=== PATIENT | male | born 1970 | race Caucasian/White ===

== ENCOUNTER → 2016-07-17 | Outpatient (CLI) | payer MEDICARE | LOC: YCFC.O 08:14 | PROVIDERS: ATTEND Nurse Practitioner Family | DX: E11.65 Type 2 diabetes mellitus with hyperglycemia (principal); I10 Essential (primary) hypertension; E83.42 Hypomagnesemia ==

== ENCOUNTER 2016-10-13 02:13 | Emergency (ER) | payer MEDICARE ==
[2016-10-13 02:24] VITALS: TEMP 98.3; O2SAT 97
--- NOTE | 2016-10-13 02:39 | ED.PDOC ---
History of Present Illness - General Chief Complaint: GI Problem Stated Complaint: N/V/D chills, bloating Time Seen by Provider: 10/13/16 02:38 Source: patient Exam Limitations: no limitations - History of Present Illness Initial Comments: [place] 46 y/o male stated that he experienced diarrhea x 3 about 12 hours ago then ate dinner played video game with daughter then had vomiting 10x afterwards felt gaseous.Has DM 1.5 x 20 + years. Timing/Duration: other - 12 hours afo Severity: moderate Improving Factors: nothing Worsening Factors: eating Associated Symptoms: diaphoresis, nausea/vomiting Allergies/Adverse Reactions: Allergies NO KNOWN ALLERGY Allergy (Verified 10/13/16 02:24) Home Medications: Ambulatory Orders Citalopram Hydrobromide 40 mg PO DAILY 01/08/14 Cyclobenzaprine HCl 10 mg PO Q8HR PRN 01/08/14 Diclofenac Sodium [Voltaren] 75 mg PO BID 01/08/14 Insulin Protamine/Lispro 75/25 [Humalog Mix 75/25 Pen] 40 units SC BID 01/08/14 Lisinopril 20 mg PO DAILY 01/08/14 Metformin HCl 1,000 mg PO BID 01/08/14 5-Hydroxytryptophan [5-Htp] 100 mg PO 10/20/14 Aspirin 325 mg PO QD 10/20/14 Buspirone HCl 15 mg PO 10/20/14 Cinnamon 500 mg PO 10/20/14 Fenofibrate 145 mg PO 10/20/14 Fish Oil-Cholecalciferol [Fish Oil + D3 5651-6096 mg-Unit] 1 cap PO 10/20/14 Gabapentin 300 mg PO 10/20/14 Insulin Detemir [Levemir] 0 unit SUBCU 10/20/14 Insulin Glargine 100U/ml [Lantus] unit SUBCU 10/20/14 Linagliptin-Metformin HCl [Jentadueto 2.5-1000 mg] 10/20/14 Meloxicam 15 mg PO 10/20/14 Mometasone Furoate Nasal [place] [Nasonex Nasal [place]] 10/20/14 Multiple Vitamin [Multi Vitamin Daily] 1 tab PO 10/20/14 Niacin ER 500 mg PO 10/20/14 Pravastatin Sodium 80 mg PO 10/20/14 Simvastatin 40 mg PO 10/20/14 Ondansetron Tab [Zofran Tab] 4 mg PO Q6-8H PRN #15 tab 11/01/14 Azithromycin 500 mg PO DAILY #7 tab 11/14/15 Promethazine HCl 50 mg PO TID PRN #14 tab 10/13/16 Review of Systems - Review of Systems Constitutional: States: no symptoms reported EENTM: States: no symptoms reported Respiratory: States: no symptoms reported Cardiology: States: no symptoms reported Gastrointestinal/Abdominal: States: see HPI Genitourinary: States: no symptoms reported Musculoskeletal: States: no symptoms reported Skin: States: no symptoms reported Neurological: States: no symptoms reported Endocrine: States: no symptoms reported Past Medical History (General) - Patient Medical History Hx Seizures: No Hx Stroke: Yes Hx Dementia: No Hx Asthma: No Hx of COPD: No Hx Cardiac Disorders: Yes - arrhythmia Hx Congestive Heart Failure: No Hx Pacemaker: No Hx Hypertension: Yes Hx Thyroid Disease: No Hx Diabetes: Yes Hx Gastroesophageal Reflux: No Hx Renal Disease: No Hx Cancer: No Hx of HIV: No Hx Hepatitis C: No Hx MRSA: No Hx Other PMH: Yes - nephrolithiasis,chronic back pain Surgical History: other - lithotripsy;nerve ablation lumbar EGD - Vaccination History Hx Tetanus, Diphtheria Vaccination: Yes Hx Influenza Vaccination: Yes Hx Pneumococcal Vaccination: No Immunizations Up to Date: Yes - Social History Hx Tobacco Use: No Hx Chewing Tobacco Use: No Hx Alcohol Use: No Hx Substance Use: No Hx Substance Use Treatment: No Hx Depression: No Feels Threatened In Home Enviroment: No Feels Threatened In a Relationship: No Hx Physical Abuse: No Hx Emotional Abuse: No Hx Suspected Abuse: No - Activities of Daily Living Patient Lives Alone: No - family - Female History Patient : No Family Medical History - Family History Mother Family History: Unknown Age (years): 62 Living Status: Still Living Hx Family Hypertension: Yes - parents Hx Cardiac Disease: Yes - cad/mi-dad Hx Family Diabetes: Yes - parents Hx Family Cancer: Yes - brast and gastric-mom Father Living Status: Still Living Hx Family Hypertension: Yes Hx Family Diabetes: Yes Hx Family;Other: [place] x3 Physical Exam - Physical Exam General Appearance: Alert, Anxious, No apparent distress Eye Exam: bilateral normal Ears, Nose, Throat: hearing grossly normal, normal ENT inspection, normal pharynx Neck: non-tender, full range of motion, supple, normal inspection Respiratory: chest non-tender, lungs clear, normal breath sounds Cardiovascular/Chest: normal peripheral pulses, regular rate, rhythm, no murmur Peripheral Pulses: radial,right: 1+, radial,left: 1+ Gastrointestinal/Abdominal: normal bowel sounds, non tender, soft, no organomegaly Back Exam: normal inspection, no CVA tenderness Extremity: normal range of motion, non-tender, normal inspection, no calf tenderness Neurologic: no motor/sensory deficits, alert, oriented x 3 Skin Exam: normal color, warm/dry Lymphatic: no adenopathy Progress - Progress Progress: 10/13/16 04:02 Vital Signs - 8 hr 10/13/16 10/13/16 02:14 02:18 Temperature 98.3 F Pulse Rate [ 120 H monitor] Respiratory 18 18 Rate Blood Pressure 156/88 [Right Arm] O2 Sat by Pulse 97 Oximetry 10/13/16 02:45 EKG STAT 10/13/16 02:56 IV Care:Saline Lock per Protoc QSHIFT 10/13/16 03:47 URINALYSIS Stat Laboratory Results - last 24 hr 10/13/16 10/13/16 10/13/16 02:25 02:25 02:25 WBC 8.8 RBC 5.02 Hgb 13.6 L Hct 39.9 L MCV 79.5 L MCH 27.0 MCHC 34.1 RDW 14.5 Plt Count 128 L MPV 10.1 Absolute Neuts (auto) 7.50 H Absolute Lymphs (auto) 0.50 L Absolute Monos (auto) 0.80 Absolute Eos (auto) 0.00 Absolute Basos (auto) 0.10 Neutrophils % 84.8 H Lymphocytes % 5.4 L Monocytes % 8.8 Eosinophils % 0.4 L Basophils % 0.6 Sodium 136 Potassium 4.3 Chloride 105 Carbon Dioxide 19 L Anion Gap 16.3 BUN 17 Creatinine 0.85 BUN/Creatinine Ratio 20.0 Random Glucose 277 H Serum Osmolality 283.4 Calcium 8.7 Total Bilirubin 0.8 AST 29 ALT 37 Alkaline Phosphatase 40 L Serum Total Protein 7.5 Albumin 4.3 Globulin 3.2 Albumin/Globulin Ratio 1.3 Lipase < 14 L - EKG/XRAY/CT EKG: Sinus, Tachy, no ST T wave changes Comments: heart rate-110 Departure - Departure Clinical Impression: Diarrhea Nausea & vomiting Qualifiers: Vomiting type: unspecified Vomiting Intractability: non-intractable Qualified Code(s): R11.2 - Nausea with vomiting, unspecified Time of Disposition: 04:05 Disposition: Discharge to Home or Self Care Condition: Good Departure Forms: ED Discharge - Pt. Copy, Patient Portal Self Enrollment Diet: bland diet, other - AVOID GREASY ,SPICY ,DAIRY FOODS UNTIL BETTER Referrals: Dinah Murillo NP [Primary Care Provider] - 1-2 Weeks Prescriptions: Promethazine HCl 50 mg PO TID PRN #14 tab PRN Reason: Nausea Home Medications: Ambulatory Orders Citalopram Hydrobromide 40 mg PO DAILY 01/08/14 Cyclobenzaprine HCl 10 mg PO Q8HR PRN 01/08/14 Diclofenac Sodium [Voltaren] 75 mg PO BID 01/08/14 Insulin Protamine/Lispro 75/25 [Humalog Mix 75/25 Pen] 40 units SC BID 01/08/14 Lisinopril 20 mg PO DAILY 01/08/14 Metformin HCl 1,000 mg PO BID 01/08/14 5-Hydroxytryptophan [5-Htp] 100 mg PO 10/20/14 Aspirin 325 mg PO QD 10/20/14 Buspirone HCl 15 mg PO 10/20/14 Cinnamon 500 mg PO 10/20/14 Fenofibrate 145 mg PO 10/20/14 Fish Oil-Cholecalciferol [Fish Oil + D3 5106-9801 mg-Unit] 1 cap PO 10/20/14 Gabapentin 300 mg PO 10/20/14 Insulin Detemir [Levemir] 0 unit SUBCU 10/20/14 Insulin Glargine 100U/ml [Lantus] unit SUBCU 10/20/14 Linagliptin-Metformin HCl [Jentadueto 2.5-1000 mg] 10/20/14 Meloxicam 15 mg PO 10/20/14 Mometasone Furoate Nasal [place] [Nasonex Nasal [place]] 10/20/14 Multiple Vitamin [Multi Vitamin Daily] 1 tab PO 10/20/14 Niacin ER 500 mg PO 10/20/14 Pravastatin Sodium 80 mg PO 10/20/14 Simvastatin 40 mg PO 10/20/14 Ondansetron Tab [Zofran Tab] 4 mg PO Q6-8H PRN #15 tab 11/01/14 Azithromycin 500 mg PO DAILY #7 tab 11/14/15 Promethazine HCl 50 mg PO TID PRN #14 tab 10/13/16 Additional Instructions: FOLLOW UP WITH PRIMARY MD 10/14/2016 as needed
[2016-10-13] MEDS ORDERED: ONDANSETRON INJ 4 MG/2 ML VIAL IV ONE (02:56)
[2016-10-13] MEDS ORDERED: SODIUM CHLORIDE 0.9% 1000ML 1,000 ML IVS ONE (02:56)
[2016-10-13] MEDS ORDERED: PROMETHAZINE TAB (ER DISP) 25 MG TAB PO ONE (04:14)
[2016-10-13] MEDS ORDERED: PROMETHAZINE TAB (ER DISP) 25 MG TAB ONE (04:15)
[2016-10-13 04:23] VITALS: BP 137/55
== END 2016-10-13 04:23 | disposition home or self-care (01) ==
LOC: ER 02:13
DX: R11.2 Nausea with vomiting, unspecified (principal); R19.7 Diarrhea, unspecified; Z79.82 Long term (current) use of aspirin; Z79.4 Long term (current) use of insulin; Z86.73 Personal history of transient ischemic attack (TIA), and cerebral infarction without residual deficits; I49.9 Cardiac arrhythmia, unspecified; I10 Essential (primary) hypertension; E11.9 Type 2 diabetes mellitus without complications
CPT/HCPCS: 36415; 80053; 81001; 83690; 85025; 93005; J2405; J7030; Q0169

== ENCOUNTER → 2016-10-30 | Outpatient (CLI) | payer MEDICARE | END | disposition home or self-care (01) | LOC: YCFC.O 12:22 | PROVIDERS: ATTEND Nurse Practitioner Family | DX: E11.65 Type 2 diabetes mellitus with hyperglycemia (principal); E83.42 Hypomagnesemia; D50.9 Iron deficiency anemia, unspecified ==

== ENCOUNTER → 2017-09-30 | Outpatient (CLI) | payer MEDICARE | LOC: YCFC.O 11:09 | PROVIDERS: ATTEND Nurse Practitioner Family | DX: I10 Essential (primary) hypertension (principal); E11.65 Type 2 diabetes mellitus with hyperglycemia; E78.2 Mixed hyperlipidemia ==

== ENCOUNTER → 2018-06-17 | Outpatient (CLI) | payer MEDICARE | LOC: YCFC.O 11:06 | PROVIDERS: ATTEND Nurse Practitioner Family | DX: E11.65 Type 2 diabetes mellitus with hyperglycemia (principal); I10 Essential (primary) hypertension; E78.2 Mixed hyperlipidemia; D50.9 Iron deficiency anemia, unspecified ==

== ENCOUNTER → 2018-12-15 | Outpatient (CLI) | payer MEDICARE | LOC: LAB.O 14:06 | PROVIDERS: ATTEND Nurse Practitioner Family | DX: I48.91 Unspecified atrial fibrillation (principal); E78.2 Mixed hyperlipidemia; E11.65 Type 2 diabetes mellitus with hyperglycemia; I10 Essential (primary) hypertension; D50.9 Iron deficiency anemia, unspecified ==